=== PATIENT | male | born 1965 | race Caucasian/White ===

== ENCOUNTER 2017-09-09 18:14 | Inpatient (IN) | END 2017-09-12 15:05 | disposition home or self-care (01) | DRG 638 ==

== ENCOUNTER 2018-01-28 10:02 | Emergency (ER) | END 2018-01-28 13:43 | disposition home or self-care (01) ==

== ENCOUNTER 2018-07-02 19:25 | Emergency (ER) | payer SELFPAY ==
[~2018-07-02] VITALS: Ht 182.9 cm; Wt 103.1 kg
[~2018-07-02 19:25] MED LIST: GLIM4TAB55 PO; LANT3I SC; METF-480 PO; METF-849 PO; SYRI-1417 MC
[2018-07-02 19:47] VITALS: Ht 182.9 cm; Wt 103.1 kg
[2018-07-02] MEDS ORDERED: SOD CHLORIDE 0.9% 1,000 ML IV STA (21:21)
--- NOTE | 2018-07-02 23:58 | ERD ---
ER Documentation Chief Complaint Chief Complaint dizzy x 2 days HPI Is a 53-year-old gentleman dizziness for the past 2 days. He says his sugars have been high patient has not been taking his Lantus. Denies fevers chills nausea vomiting denies any focal neurologic complaints. Denies any chest pain. Denies any current issues. ROS All systems reviewed and are negative except as per history of present illness. Medications Home Meds Active Scripts Insulin Glargine* (Lantus*) 100 Unit/Ml Soln, 35 UNIT SC DAILY for 60 Days, #60 DAYSX 3 28 5 Refills Prov:VESNA HARRIS MD 09/12/17 Discontinued Scripts Metformin* (Glucophage*) 500 Mg Tab, 500 MG PO BID, #30 TAB Prov:RADHA KARIMI MD 01/28/18 Syring W-Ndl,Disp,Insul,0.5 ml (Easy Comfort Insulin Syringe) 1 Each Disp.syrin, 1 BOX MC DAILY, #10 Prov:VESNA HARRIS MD 09/12/17 Metformin* (Glucophage*) 850 Mg Tablet, 850 MG PO WITH BREAKFAST DINNE for 60 Days, #120 TAB 5 Refills Prov:VESNA HARRIS MD 09/12/17 Glimepiride* (Amaryl*) 4 Mg Tablet, 4 MG PO AC BREAKFAST DINNER for 60 Days, #60 TAB 5 Refills Prov:VESNA HARRIS MD 09/12/17 Allergies Allergies: Coded Allergies: No Known Allergy (Unverified , 07/02/18) PMhx/Soc History of Surgery: No Anesthesia Reaction: No Hx Neurological Disorder: No Hx Respiratory Disorders: No Hx Cardiac Disorders: No Hx Psychiatric Problems: No Hx Miscellaneous Medical Probl: Yes (DM, DKA, chronic skin rash) Hx Alcohol Use: No Hx Substance Use: No Hx Tobacco Use: No Smoking Status: Never smoker Physical Exam Vitals Vital Signs Date Temp Pulse Resp B/P (MAP) Pulse Ox O2 O2 Flow FiO2 Time Delivery Rate 07/02/18 98.4 86 18 127/70 97 19:47 (89) Physical Exam Const: No acute distress Head: Atraumatic Eyes: Normal Conjunctiva ENT: Normal External Ears, Nose and Mouth. Neck: Full range of motion. No meningismus. Resp: Clear to auscultation bilaterally Cardio: Regular rate and rhythm, no murmurs Abd: Soft, non tender, non distended. Normal bowel sounds Skin: No petechiae or rashes Back: No midline or flank tenderness Ext: No cyanosis, or edema Neur: Awake and alert Psych: Normal Mood and Affect Result Diagram: 07/02/18211707/02/182117 Results 24 hrs Laboratory Tests Test 07/02/18 21:11 07/02/18 21:18 07/02/18 21:20 Bedside Glucose 405 mg/dL White Blood Count 7.7 10^3/ul Red Blood Count 4.85 10^6/ul Hemoglobin 15.1 g/dl Hematocrit 40.8 % Mean Corpuscular Volume 84.1 fl Mean Corpuscular Hemoglobin 31.1 pg Mean Corpuscular 37.0 g/dl Hemoglobin Concent Red Cell Distribution Width 11.0 % Platelet Count 239 10^3/UL Mean Platelet Volume 11.8 fl Immature Granulocytes % 0.300 % Neutrophils % 42.8 % Lymphocytes % 42.8 % Monocytes % 9.2 % Eosinophils % 4.0 % Basophils % 0.9 % Nucleated Red Blood Cells % 0.0 /100WBC Immature Granulocytes # 0.020 10^3/ul Neutrophils # 3.3 10^3/ul Lymphocytes # 3.3 10^3/ul Monocytes # 0.7 10^3/ul Eosinophils # 0.3 10^3/ul Basophils # 0.1 10^3/ul Nucleated Red Blood Cells # 0.0 10^3/ul Sodium Level 133 mmol/L Potassium Level 3.8 mmol/L Chloride Level 95 mmol/L Carbon Dioxide Level 23 mmol/L Anion Gap 15 Blood Urea Nitrogen 18 mg/dl Creatinine 0.98 mg/dl Est Glomerular Filtrat > 60 mL/min Rate mL/min Glucose Level 412 mg/dl Calcium Level 9.3 mg/dl Total Bilirubin 0.1 mg/dl Direct Bilirubin 0.00 mg/dl Indirect Bilirubin 0.1 mg/dl Aspartate Amino 36 IU/L Transf (AST/SGOT) Alanine 31 IU/L Aminotransferase (ALT/SGPT) Alkaline Phosphatase 135 IU/L Troponin I < 0.012 ng/ml Total Protein 7.5 g/dl Albumin 4.4 g/dl Globulin 3.10 g/dl Albumin/Globulin Ratio 1.41 Lipase 271 U/L Urine Color COLORLESS Urine Clarity CLEAR Urine pH 6.0 Urine Specific [place] 1.010 Urine Ketones NEGATIVE mg/dL Urine Nitrite NEGATIVE mg/dL Urine Bilirubin NEGATIVE mg/dL Urine Urobilinogen NEGATIVE mg/dL Urine Leukocyte Esterase NEGATIVE Sree/ul Urine Microscopic RBC 0 /HPF Urine Microscopic WBC 0 /HPF Urine Hemoglobin 1+ mg/dL Urine Glucose 3+ mg/dL Urine Total Protein NEGATIVE mg/dl Current Medications Medications Dose Sig/Yesy Start Time Status Last (Trade) Ordered Route PRN Stop Time Admin Dose Reason Admin Sodium 1,000 ml @ Q1H STAT 07/02/18 DC 07/02/18 Chloride 1,000 mls/hr IV 21:21 21:30 07/02/18 22:20 Procedures/MDM Medical decision m[age]-year male with essentially hyperglycemia. No evidence of DKA be treated with fluids here. Stable for outpatient management. Will be given refill of his Lantus. Departure Diagnosis: Primary Impression: Diabetes mellitus type 2 in nonobese Condition: Stable JOSSUE NGUYEN Jul 02, 2018 23:58
[2018-07-03] MEDS ORDERED: LANT3I SC (00:25)
[2018-07-03 00:43] VITALS: BP 119/84; PULSE 60; RESP 18
== END 2018-07-03 00:49 | disposition home or self-care (01) ==
LOC: E/R 19:25
DX: E11.9 Type 2 diabetes mellitus without complications (principal); Z79.4 Long term (current) use of insulin
CPT/HCPCS: 36415; 80053; 81001; 82962; 83690; 84484; 85025; 93005; 99284; J7030